=== PATIENT | male | born 1955 | race Hispanic/Latino ===

== ENCOUNTER 2020-02-28 16:43 | Emergency (ER) | payer OTHER, MEDICARE ==
[2020-02-28 17:07] LABS: BASOPHILS % (AUTO) 0.7 % (0.0-5.0); EOSINOPHILS % (AUTO) 0.7 % (0.0-8.0); HEMATOCRIT 41.9 % (42-54); LYMPHOCYTES % (AUTO) 15.6 % (21.0-51.0); MEAN CORPUSCULAR HEMOGLOBIN 29.8 pg (27.0-33.0); MEAN CORPUSCULAR HGB CONC 34.4 g/dL (32.0-36.0); MEAN CORPUSCULAR VOLUME 86.7 fL (79-99); MONOCYTES % (AUTO) 4.7 % (3.0-13.0); NEUTROPHILS % (AUTO) 78.1 % (40.0-77.0); PLATELET COUNT (AUTO) 153 K/uL (130-400); RED BLOOD CELL COUNT(AUTO) 4.83 MIL/uL (4.50-6.20); RED CELL DISTRIBUTION WIDTH 12.3 % (11.0-15.5); WHITE BLOOD COUNT (AUTO) 4.4 K/uL (4.8-10.8)
[2020-02-28 17:29] LABS: CARBON DIOXIDE 26 mmol/L (21-32); CHLORIDE 100 mmol/L (101-111); CREATININE 1.1 mg/dL (0.5-1.5); GLOMERULAR FILTR. RATE CALC 71 mL/min (>60); GLUCOSE,RANDOM 160 mg/dL (70-105); POTASSIUM 3.8 mmol/L (3.5-5.1); SODIUM SERUM 136 mmol/L (136-145); UREA NITROGEN, BLOOD 6 mg/dL (7-18)
[2020-02-28 17:39] LABS: ALANINE AMINOTRANSFERASE 34 U/L (12-78); ALBUMIN 4.3 g/dL (3.5-5.0); ASPARTATE AMINOTRANSFERASE 23 U/L (10-37); BILIRUBIN,TOTAL 0.4 mg/dL (0.2-1.0); CREATINE KINASE, TOTAL 57 U/L (21-232); MYOGLOBIN 26 ng/mL (10-92); TOTAL PROTEIN, SERUM 7.2 g/dL (6.0-8.3); TROPONIN I < 0.04 ng/mL (0.00-0.06)
== END 2020-02-28 18:20 | disposition home or self-care (01) ==
LOC: EDH 16:43
DX: M62.830 Muscle spasm of back (principal); R07.89 Other chest pain; I10 Essential (primary) hypertension; Z87.891 Personal history of nicotine dependence
CPT/HCPCS: 36415; 71046; 80053; 82550; 83874; 84484; 85025; 93005

== ENCOUNTER 2020-03-11 05:48 | Day surgery (SDC) | payer OTHER, MEDICARE ==
[2020-03-11] VITALS (14 sets, daily range): BP systolic 101–132; BP diastolic 55–85
[~2020-03-11] VITALS: Ht 172.7 cm; Wt 97.9 kg
[2020-03-11] MEDS ORDERED: ONDA4TAB4 PO (06:13)
[2020-03-11] MEDS ORDERED: MECL-160 PO (06:13)
[2020-03-11] MEDS ORDERED: METH500T6 PO (06:13)
[2020-03-11] MEDS ORDERED: HYDR-4060 PO (06:13)
[2020-03-11] MEDS ORDERED: PANT40TA54 PO (06:13)
[2020-03-11] MEDS ORDERED: AMLO-257 PO (06:13)
[2020-03-11] MEDS ORDERED: FAMO40TA7 PO (06:13)
[2020-03-11 06:23] LABS: BASOPHILS % (AUTO) 0.4 % (0.0-5.0); EOSINOPHILS % (AUTO) 1.3 % (0.0-8.0); HEMATOCRIT 43.4 % (42-54); LYMPHOCYTES % (AUTO) 24.5 % (21.0-51.0); MEAN CORPUSCULAR HEMOGLOBIN 29.4 pg (27.0-33.0); MEAN CORPUSCULAR HGB CONC 34.3 g/dL (32.0-36.0); MEAN CORPUSCULAR VOLUME 85.8 fL (79-99); MONOCYTES % (AUTO) 6.2 % (3.0-13.0); NEUTROPHILS % (AUTO) 67.4 % (40.0-77.0); PLATELET COUNT (AUTO) 160 K/uL (130-400); RED BLOOD CELL COUNT(AUTO) 5.06 MIL/uL (4.50-6.20); RED CELL DISTRIBUTION WIDTH 12.4 % (11.0-15.5); WHITE BLOOD COUNT (AUTO) 4.5 K/uL (4.8-10.8)
[2020-03-11] MEDS ORDERED: SODIUM CHLORIDE 0.9% 1000ML 1,000 ML IV ONE (06:32)
[2020-03-11 06:45] LABS: INR 1.06 (0.85-1.15); PARTIAL THROMBOPLASTIN TIME 26.3 SEC (26.3-35.5); PROTHROMBIN TIME 11.4 SEC (9.6-11.6)
[2020-03-11 06:48] LABS: POTASSIUM 3.6 mmol/L (3.5-5.1)
[2020-03-11] MEDS ORDERED: MEPERIDINE-PF 25 MG/ML SYG ONE ×2 (07:26→08:50)
[2020-03-11] MEDS ORDERED: MIDAZOLAM HCL 1 MG/ML 2ML VIAL ONE ×2 (07:26→08:50)
[2020-03-11] MEDS ORDERED: LIDOCAINE HCL 2% 20ML ONE (07:27)
[2020-03-11] MEDS ORDERED: ISOPROTERENOL HCL 0.2 MG/ML AMP/VIAL/BAG ONE (07:28)
--- NOTE | 2020-03-11 07:30 | NUR ---
RE: CHEST PAIN PATIENT C/O CHEST PAIN/PRESSURE. RATES IT AT 5-6 OUT OF 10 AND RADIATES TO HIS BACK. STATES THAT THE PAIN COMES AND GOES. PATIENT STATES THAT IT IS EASING UP. CALLED DR REYES AND INFORMED HIM OF PATIENT'S CHEST PAIN. RECEIVED ORDERS FOR STAT EKG AND NITRO TO BE GIVEN AFTER EKG IS COMPLETE.
[2020-03-11] MEDS ORDERED: NITROGLYCERIN 4.1 GM SPRAY TL ONE (07:36)
--- NOTE | 2020-03-11 07:40 | NUR ---
EKG COMPLETE AND PATIENT RATES CHEST PAIN AT 3 OUT OF 10. NITRO SPRAY ADMINISTERED TO PATIENT. DR REYES INFORMED OF EKG RESULTS.
[2020-03-11] MEDS ORDERED: LIDOCAINE HCL 1% MDV 50ML VIAL ONE (07:49)
[2020-03-11] MEDS ORDERED: BUPIVACAINE/PF 0.25% 30ML VIAL IJ ONE (07:49)
[2020-03-11] MEDS ORDERED: IODIXANOL 320 MG/ML 100 ML VIAL ONE (07:49)
[2020-03-11] MEDS ORDERED: CEFAZOLIN SODIUM 1 GM VIAL ONE (07:50)
[2020-03-11] MEDS ORDERED: NITROGLYCERIN 4.1 GM SPRAY TL SCH ×3 (08:00)
--- NOTE | 2020-03-11 08:07 | NUR ---
PATIENT TRANSFERRED TO [facility]ACILITIES OPERATOR VIA STRETCHER BY CLARE CANTRELL AND [facility] ONO[facility]RE
[2020-03-11] MEDS ORDERED: ADENOSINE 90MG/30ML VIAL IV ONE (08:31)
[2020-03-11] MEDS ORDERED: ACETAMINOPHEN-CODEINE 300/30MG TAB PO PRN (10:00)
== END 2020-03-11 12:50 | disposition home or self-care (01) ==
LOC: DAH 05:48 → CLH 05:48
PROVIDERS: ATTEND Internal Medicine Cardiovascular Disease
DX: I44.30 Unspecified atrioventricular block (principal); I44.4 Left anterior fascicular block; I45.3 Trifascicular block; I10 Essential (primary) hypertension; Z90.49 Acquired absence of other specified parts of digestive tract; Z98.890 Other specified postprocedural states; Z79.899 Other long term (current) drug therapy; Z79.01 Long term (current) use of anticoagulants
CPT/HCPCS: 33285; 36415; 80048; 85025; 85610; 85730; 93005; 93620; 93623; A4215; A4216; A4221; A4222; A4223 ×3; A4606; A4649; A4663; C1730 ×2; C1764; C1894 ×2; J0690; J1644; J2175 ×2; J2250 ×2; J3490 ×4; J7030; 99156; 99157; J0153; Q9967

== ENCOUNTER → 2020-04-08 | Outpatient (CLI) | payer OTHER, MEDICARE ==
[~2020-04-08] MED LIST: AMLO5TAB9 PO; FAMO40TA7 PO; HYDR-4060 PO; MECL-160 PO; METH500T6 PO; ONDA4TAB4 PO; PANT40TA25 PO
== END | disposition home or self-care (01) ==
LOC: SHCH 13:41
PROVIDERS: ATTEND Internal Medicine Cardiovascular Disease
DX: R42 Dizziness and giddiness (principal)
CPT/HCPCS: 93880

== ENCOUNTER → 2020-05-05 | Outpatient (CLI) | payer OTHER, MEDICARE ==
[~2020-05-05] MED LIST changes: +AMLO-257 PO; -AMLO5TAB9 PO; +IOHEXOL-350 50ML VIAL IV ONE; -PANT40TA25 PO; +PANT40TA54 PO
== END | disposition home or self-care (01) ==
LOC: RAH 09:15
PROVIDERS: ATTEND Internal Medicine Gastroenterology
DX: I70.8 Atherosclerosis of other arteries (principal); N40.0 Benign prostatic hyperplasia without lower urinary tract symptoms; R10.30 Lower abdominal pain, unspecified
CPT/HCPCS: 74178; Q9967

== ENCOUNTER → 2021-07-21 | Outpatient (CLI) | payer OTHER ==
[~2021-07-21] MED LIST changes: -IOHEXOL-350 50ML VIAL IV ONE; +METH-811 PO; -METH500T6 PO
== END | disposition home or self-care (01) ==
LOC: RAH 08:18
PROVIDERS: ATTEND Internal Medicine
DX: K21.9 Gastro-esophageal reflux disease without esophagitis (principal)
CPT/HCPCS: 74240

== ENCOUNTER 2023-09-19 05:41 | Day surgery (SDC) | payer MEDICARE, OTHER ==
[2023-09-07 11:37] VITALS: BP 119/76; PULSE 60; RESP 18
[~2023-09-19] VITALS: Ht 172.7 cm; Wt 97.7 kg
[2023-09-19] VITALS (8 sets, daily range): BP systolic 75–122; BP diastolic 47–83; PULSE 60–61; RESP 14–16
[~2023-09-19 05:41] MED LIST changes: -AMLO-257 PO; +AMOX500C2 PO; +CLON0.1T PO; +CYCL5TAB PO; +DICY20TA3 PO; -HYDR-4060 PO; +LINA290C PO; -MECL-160 PO; -METH-811 PO; +METO25TA6 PO; +NAPR-1023 PO; -ONDA4TAB4 PO; +TOPI-255 PO
[2023-09-19] MEDS ORDERED: 0.9%NACL 1000ML 1,000 ML IV ONE (06:51)
[2023-09-19] MEDS ORDERED: PROPOFOL 10 MG/ML 20ML VIAL IV ONE (07:16)
== END 2023-09-19 08:25 | disposition home or self-care (01) ==
LOC: ENDO 05:41 → DAH 05:41 → ENDO 08:25
PROVIDERS: ATTEND Internal Medicine Gastroenterology
DX: Z12.11 Encounter for screening for malignant neoplasm of colon (principal); K57.30 Diverticulosis of large intestine without perforation or abscess without bleeding; K58.1 Irritable bowel syndrome with constipation; K31.89 Other diseases of stomach and duodenum; I10 Essential (primary) hypertension; K21.00 Gastro-esophageal reflux disease with esophagitis, without bleeding; M19.90 Unspecified osteoarthritis, unspecified site; Z86.010 Personal history of colon polyps; Z79.01 Long term (current) use of anticoagulants; Z95.0 Presence of cardiac pacemaker; Z90.49 Acquired absence of other specified parts of digestive tract; Z98.890 Other specified postprocedural states
CPT/HCPCS: 45378; J7030 ×2; J2704; A4620; A4215 ×2; A4223; A7002; A4222; A4221; A4663; A4216; A4606; J3490

== ENCOUNTER → 2024-02-15 | Outpatient (CLI) | payer OTHER ==
[~2024-02-15] MED LIST changes: -TOPI-255 PO; +TOPI-97 PO
== END | disposition home or self-care (01) ==
LOC: LAB 14:10
PROVIDERS: ATTEND Internal Medicine
DX: R10.9 Unspecified abdominal pain (principal)
CPT/HCPCS: 36415; 82565; 84520

== ENCOUNTER → 2024-02-20 | Outpatient (CLI) | payer OTHER ==
[~2024-02-20] MED LIST changes: +IOHEXOL 350 MG/ML 100ML INFUS..BTL IV ONE
== END | disposition home or self-care (01) ==
LOC: RAH 10:50
PROVIDERS: ATTEND Internal Medicine
DX: R10.9 Unspecified abdominal pain (principal); Z90.49 Acquired absence of other specified parts of digestive tract
CPT/HCPCS: 74177; Q9967